=== PATIENT | female | born 1960 | race Caucasian/White ===

== ENCOUNTER 2016-09-10 10:53 | Day surgery (SDC) | payer OTHER ==
[2016-09-09 16:22] VITALS: Ht 154.9 cm; Wt 72.7 kg
[2016-09-10] VITALS (14 sets, daily range): BP systolic 108–140; BP diastolic 65–85; PULSE 48–62; RESP 10–18
[~2016-09-10] VITALS: Ht 154.9 cm; Wt 72.7 kg
[~2016-09-10 10:53] MED LIST: CEFAZOLIN 1 GM/50 ML (PMX) 50 ML IVPB SCH; GLYCOPYRROLATE 0.4 MG INJ ONE; LACTATED RINGER'S 1,000 ML IV SCH; NEOSTIGMINE 3 MG/3 ML SYRINGE ONE; OMEP20CA16 PO
[2016-09-10] MEDS ORDERED: AZELASTINE 30 ML NAS SPRAY NASAL ONE (13:00)
--- NOTE | 2016-09-10 14:11 | HPN ---
Date/Time of Note Date/Time of Note DATE: 09/10/16 TIME: 14:10 Interval H&P Admission Note Pt. seen H&P reviewed: No system changes DARLING STOVER DPM Sep 10, 2016 14:10
[2016-09-10] MEDS ORDERED: BUPIVACAINE 0.5% (SDV) 30 ML INJ ONE (14:13)
[2016-09-10] MEDS ORDERED: DEXAMETHASONE 4 MG/ML 1 ML INJ ONE ×2 (14:14→14:34)
[2016-09-10] MEDS ORDERED: TRIAMCINOLONE ACET 40 MG/ML INJ ONE (14:15)
[2016-09-10] MEDS ORDERED: FENTAnyl 50 MCG/ML VIAL ONE (14:16)
[2016-09-10] MEDS ORDERED: ONDANSETRON (ODT) 4 MG TAB ODT PRN (14:30)
[2016-09-10] MEDS ORDERED: MEPERIDINE 25 MG INJ IV PRN (14:30)
[2016-09-10] MEDS ORDERED: METOCLOPRAMIDE 10 MG INJ IV PRN (14:30)
[2016-09-10] MEDS ORDERED: ALBUTEROL 0.083% (NEB) 2.5 MG/3 ML AMP HHN ONE (14:30)
[2016-09-10] MEDS ORDERED: HYDROCODONE/APAP (10/325) TAB PO PRN (14:30)
[2016-09-10] MEDS ORDERED: DIPHENHYDRAMINE 50 MG INJ IV PRN (14:30)
[2016-09-10] MEDS ORDERED: HYDROmorphONE (0.2 MG/ML) 10ML SYG IV PRN ×3 (14:30)
[2016-09-10] MEDS ORDERED: ONDANSETRON 4 MG INJ IV PRN (14:30)
[2016-09-10] MEDS ORDERED: RACEPINEPHRINE 2.25%(NEB) 0.5 ML AMP HHN ONE (14:30)
[2016-09-10] MEDS ORDERED: FENTAnyl 50 MCG/ML VIAL IV PRN ×2 (14:30)
[2016-09-10] MEDS ORDERED: LIDOCAINE 2% (SDV) 5 ML INJ ONE (14:34)
[2016-09-10] MEDS ORDERED: ROCURONIUM 50 MG INJ ONE (14:34)
[2016-09-10] MEDS ORDERED: SUCCINYLCHOLINE CHLORIDE 100 MG/5 ML SYG IV ONE (14:34)
[2016-09-10] MEDS ORDERED: PROPOFOL 20 ML ONE (14:34)
--- NOTE | 2016-09-13 08:46 | OPR ---
DATE OF OPERATION: 09/10/2016 SURGEON: Dante Brown DPM. PREOPERATIVE DIAGNOSES: 1. Painful right foot. Possible neuroma. 2. Contraction of the fifth metatarsal exostoses. POSTOPERATIVE DIAGNOSIS: OPERATION PERFORMED: ANESTHESIA: General. OPERATIVE PROCEDURE: The patient was brought into the OR and the foot and ankle were prepped and draped in the usual sterile fashion. Using a #15 blade an approximately 3 cm incision was made in the intermetatarsal space between the fourth and fifth metatarsals. It should be noted that prior to incision the foot and ankle was exsanguinated and tourniquet was inflated to 250 mmHg. The incision is made in the fourth intermetatarsal space. Sharp and blunt dissection were achieved. Bleeding vessels were ligated and the superficial nerve tissue was retracted. The area in-between the fourth intermetatarsal space was inspected, there was a contracture of the extensor digitorum longus tendon of the fifth toe. This was a lengthening performed with a Z-plasty. One suture of #3-0 Vicryl was utilized to secure the lengthening. Attention was then directed and arthrotomies with a #15 blade were performed of the fourth and fifth metatarsal region. There is small exostoses noted around the heads of the fifth metatarsal and fourth metatarsal, these are smooth. The area was copiously lavaged with antibiotic solution. Utilizing a hemostat the anterior metatarsal ligament was identified. The branches of the digital nerve were noted. There is a large amount of adipose tissue around it with neuromal-like looking tissue. This tissue was debrided with scissor and sent to pathology for analysis. The inner space was inspected and the area was copiously lavaged with antibiotic solution once again. After inspection and application of ActiShield antibiotic barrier membrane was utilized around the surgical site. This should decrease inflammation and also increase healing. The area was then coapted with #2-0 Vicryl suture. The area was inspected and the skin incision was then coapted with #4-0 nylon suture. The area was injected with approximately 6 mL of 0.5 percent plain Marcaine postoperatively. Also, Kenalog 40 mg was utilized around the fourth and fifth metatarsal phalangeal joint regions. A dressing of Xeroform, 4x4 and rolled gauze was then utilized. As was Coban around the foot and ankle region. The tourniquet was released and active hyperemia was noted to all the digits of the right foot. This patient tolerated the procedure well and left the room in stable condition. Dictated By: Dante Brown DPM /sanjuana/javed /Document#: [id number]
== END 2016-09-10 17:46 | disposition home or self-care (01) ==
LOC: SDS 10:53
PROVIDERS: ATTEND Podiatrist Foot & Ankle Surgery
DX: G57.61 Lesion of plantar nerve, right lower limb (principal); I10 Essential (primary) hypertension; E66.9 Obesity, unspecified; Z68.30 Body mass index [BMI] 30.0-30.9, adult
CPT/HCPCS: 28080; 88304; J1100; J2710; J3010; J7999; Z7512; Z7610

== ENCOUNTER 2018-10-20 16:45 | Emergency (ER) | payer OTHER ==
[~2018-10-20] VITALS: Wt 82.8 kg
[~2018-10-20 16:45] MED LIST changes: +AZEL137S9 NASAL; -CEFAZOLIN 1 GM/50 ML (PMX) 50 ML IVPB SCH; -GLYCOPYRROLATE 0.4 MG INJ ONE; +HYDR-3980 PO; -LACTATED RINGER'S 1,000 ML IV SCH; +LISI10TA2 PO; -NEOSTIGMINE 3 MG/3 ML SYRINGE ONE; +NITR-58 PO; +ONDA4TAB14 PO; +SIMV20TA PO
[2018-10-20] MEDS ORDERED: SOD CHLORIDE 0.9% 1,000 ML IV STA (18:35)
[2018-10-20] MEDS ORDERED: ONDANSETRON 4 MG INJ IV STA (18:35)
[2018-10-20] MEDS ORDERED: HYDROmorphONE 1 MG/ML SYG IV STA (18:35)
[2018-10-20 21:06] VITALS: BP 127/79; PULSE 89; RESP 20
== END 2018-10-20 21:07 | disposition home or self-care (01) ==
LOC: E/R 16:45
DX: N30.01 Acute cystitis with hematuria (principal); I10 Essential (primary) hypertension; R40.2142 Coma scale, eyes open, spontaneous, at arrival to emergency department; R40.2252 Coma scale, best verbal response, oriented, at arrival to emergency department; R40.2362 Coma scale, best motor response, obeys commands, at arrival to emergency department
CPT/HCPCS: 36415; 74176; 80053; 81001; 85025; 87086; 96361; 96374; 96375; J1170; J2405; J7030; Z7502; Z7610